=== PATIENT | male | born 1990 | race American Indian/Alaskan Native ===

== ENCOUNTER 2018-09-23 10:56 | Emergency (ER) | payer OTHER ==
[2018-09-23] MEDS ORDERED: IBUPROFEN PO ONE (12:16)
--- NOTE | 2018-09-23 12:47 | XRay Report ---
LEFT KNEE RADIOGRAPHS INDICATION: Pain. COMPARISON: None similar at this institution. FINDINGS: AP, lateral and oblique left knee radiographs demonstrate intact bony articulation and appearance. No suprapatellar effusion. Subtle prepatellar soft tissue swelling/thickening though not entirely excluded. CONCLUSION: No acute left knee bony abnormality, as described. Please correlate. Thank you for the opportunity to participate in this patient's care.
[2018-09-23 12:59] LABS: Basophils # (Auto) 0.1 K/mm3 (0.0-0.1); Basophils % (Auto) 1.2 % (0.0-1.8); Eosinophils # (Auto) 0.1 K/mm3 (0.0-0.4); Eosinophils % (Auto) 1.2 % (0.0-4.3); Hematocrit 43.6 % (35.5-45.6); Hemoglobin 14.5 gm/dl (11.8-15.2); Lymphocytes # (Auto) 2.3 K/mm3 (1.2-5.4); Lymphocytes % (Auto) 31.7 % (13.4-35.0); Mean Corpuscular HGB Conc 33 % (32-34); Mean Corpuscular Volume 82 fl (84-94); Monocytes # (Auto) 0.5 K/mm3 (0.0-0.8); Monocytes % (Auto) 7.3 % (0.0-7.3); Platelet Count 193 K/mm3 (140-440); Red Blood Count 5.33 M/mm3 (3.65-5.03); Red Cell Distribution Width 14.3 % (13.2-15.2)
--- NOTE | 2018-09-23 13:40 | Emergency Department Report ---
HPI - General Chief Complaint: Extremity Injury, Lower Time Seen by Provider: 09/23/18 12:06 - HPI HPI: 28-year-old male who presents to the emergency department with complaint of left knee pain and swelling since he had it on something about 2 days ago. The pain is a throbbing sensation and has kept him from getting any sleep. He says he also has a history of gout and doesn't know if this exacerbated it. He did not take anything for her symptoms prior to presentation. ED Past Medical Hx - Past Medical History Previous Medical History?: No - Surgical History Past Surgical History?: No - Social History Smoking Status: Never Smoker Substance Use Type: None - Medications Home Medications: Home Medications Medication Instructions Recorded Confirmed Last Taken Type Erythromycin [Erythromycin Ophth 1 applic OP QID 10 Days #1 tube 05/24/18 Unknown Rx Oint] HYDROcodone/ACETAMINOPHEN [[place] 1 each PO Q6H PRN #10 tablet 05/24/18 Unknown Rx 7.5-325 Tablet] Ibuprofen [Motrin 600 MG tab] 600 mg PO Q8H PRN #30 tablet 05/24/18 Unknown Rx Colchicine 0.6 mg PO ONCE #3 capsule 09/23/18 Unknown Rx HYDROcodone/APAP 5-325 [[place] 1 each PO Q6HR PRN #10 tablet 09/23/18 Unknown Rx 5/325] ED Review of Systems ROS: Stated complaint: L KNEE PAIN Other details as noted in HPI Comment: All other systems reviewed and negative Constitutional: denies: chills, fever Eyes: denies: eye pain, vision change ENT: denies: ear pain, throat pain Respiratory: denies: cough, shortness of breath Cardiovascular: denies: chest pain, palpitations Gastrointestinal: denies: abdominal pain, vomiting Genitourinary: denies: dysuria, discharge Musculoskeletal: joint swelling, arthralgia Skin: denies: rash, lesions Neurological: denies: headache, weakness Physical Exam - Physical Exam Vital Signs: Vital Signs 09/23/18 11:05 Temperature 98.5 F Pulse Rate 67 Respiratory 16 Rate Blood Pressure 125/65 O2 Sat by Pulse 99 Oximetry Physical Exam: GENERAL: The patient is well-developed well-nourished. HENT: Normocephalic. Atraumatic. Patient has moist mucous membranes. EYES: Extraocular motions are intact. NECK: Supple. Trachea is midline. CHEST/LUNGS: Clear to auscultation. There is no respiratory distress noted. HEART/CARDIOVASCULAR: Regular. There is no tachycardia. There is no murmur. ABDOMEN: Abdomen is soft, nontender. Patient has normal bowel sounds. There is no abdominal distention. SKIN: Mild nonpitting swelling of the left anterior knee. NEURO: The patient is awake, alert, and oriented. The patient is cooperative. The patient has no focal neurologic deficits. The patient has normal speech. MUSCULOSKELETAL: There is some tenderness to palpation of the left knee but no obvious deformity. Negative anterior and posterior drawer test of the affected left knee. No laxity to valgus or varus stress. ED Course Vital Signs 09/23/18 11:05 Temperature 98.5 F Pulse Rate 67 Respiratory 16 Rate Blood Pressure 125/65 O2 Sat by Pulse 99 Oximetry ED Medical Decision Making - Lab Data Result diagrams: 09/23/18 12:33 - Radiology Data Radiology results: image reviewed interpreted by me: X-ray of the left knee does not show any fracture, dislocation or any acute process. - Medical Decision Making 28-year-old male presents to the emergency department with a 3 to four-day history of left knee pain after hitting it on something. He says that he has a history of gout so a uric acid level was checked again back at 8.5, slightly elevated. X-ray did not show any fracture or dislocation. The patient was placed in a knee immobilizer. He was given a referral for an orthopedist and a prescription for some pain medication and a dose of colchicine. He will return to the ER with any worsening of symptoms or any acute distress. - Differential Diagnosis fracture, dislocation, gout, osteoarthritis Critical Care Time: No Critical care attestation.: If time is entered above; I have spent that time in minutes in the direct care of this critically ill patient, excluding procedure time. ED Disposition Clinical Impression: Left knee pain Qualifiers: Chronicity: acute Qualified Code(s): M25.562 - Pain in left knee Gout Qualifiers: Gout site: knee Gout etiology: unspecified cause Chronicity: unspecified Laterality: left Qualified Code(s): M10.9 - Gout, unspecified Disposition: DC- TO HOME OR SELFCARE Is pt being admited?: No Condition: Stable Instructions: Acute Gouty Arthritis (ED), Arthralgia (ED) Additional Instructions: Please follow up with your primary care physician. I'm continuing referral for a local orthopedist, Dr. Da Silva, to follow up regarding your knee pain. Return to the emergency Department with any worsening of your symptoms or any acute distress. You have been prescribed a medication that is sedating and therefore should not be taken prior to driving, working, and responsible for children and in no way should be mixed with alcohol of any quantity. Prescriptions: Colchicine 0.6 mg PO ONCE #3 capsule HYDROcodone/APAP 5-325 [[place] 5/325] 1 each PO Q6HR PRN #10 tablet PRN Reason: Pain Referrals: [facility] [Outside] - 2-3 Days VINCENT DA SILVA MD [Staff Physician] - 2-3 Days Forms: Work/School Release Form(ED) Time of Disposition: 13:40
[2018-09-23 14:46] VITALS: BP 118/72
== END 2018-09-23 14:45 | disposition home or self-care (01) ==
LOC: ED 10:56
DX: M10.9 Gout, unspecified (principal); M25.562 Pain in left knee
CPT/HCPCS: 36415; 84550; 85025

== ENCOUNTER 2019-07-17 15:50 | Emergency (ER) | payer SELFPAY ==
[2019-07-17 16:18] VITALS: BP 122/65
--- NOTE | 2019-07-17 16:22 | Emergency Department Report ---
ED Extremity Problem HPI - General Chief complaint: Extremity Problem,Nontraumatic Stated complaint: GOUT FLARE UP Time Seen by Provider: 07/17/19 16:17 Source: patient Mode of arrival: Ambulatory Limitations: No Limitations - History of Present Illness Initial comments: pt is a 29 yo male who presents to the ED with c/o a gout flare that began three days ago. states that he has right knee pain and edema. states he last had a gout flare three weeks ago. he is ambulatory. he denies any fall or injury. no numbness or weakness. no pmhx. no allergies to meds. - Related Data Previous Rx's Medication Instructions Recorded Last Taken Type Erythromycin [Erythromycin Ophth 1 applic OP QID 10 Days #1 tube 05/24/18 Unknown Rx Oint] HYDROcodone/ACETAMINOPHEN [[place] 1 each PO Q6H PRN #10 tablet 05/24/18 Unknown Rx 7.5-325 Tablet] Ibuprofen [Motrin 600 MG tab] 600 mg PO Q8H PRN #30 tablet 05/24/18 Unknown Rx HYDROcodone/APAP 5-325 [[place] 1 each PO Q6HR PRN #10 tablet 09/23/18 Unknown Rx 5/325] Colchicine 0.6 mg PO ONCE #3 capsule 07/17/19 Unknown Rx Prednisone [predniSONE 10 mg 10 mg PO .TAPER #1 tab.ds.pk 07/17/19 Unknown Rx (6-Day Pack, 21 Tabs)] traMADoL [Ultram 50 MG tab] 50 mg PO Q6HR PRN #10 tablet 07/17/19 Unknown Rx Allergies Allergy/AdvReac Type Severity Reaction Status Date / Time No Known Allergies Allergy Unverified 05/24/18 02:02 ED Review of Systems ROS: Stated complaint: GOUT FLARE UP Other details as noted in HPI Comment: All other systems reviewed and negative ED Past Medical Hx - Past Medical History Previous Medical History?: Yes Additional medical history: Gout - Social History Smoking Status: Never Smoker Substance Use Type: None - Medications Home Medications: Home Medications Medication Instructions Recorded Confirmed Last Taken Type Erythromycin [Erythromycin Ophth 1 applic OP QID 10 Days #1 tube 05/24/18 Unknown Rx Oint] HYDROcodone/ACETAMINOPHEN [[place] 1 each PO Q6H PRN #10 tablet 05/24/18 Unknown Rx 7.5-325 Tablet] Ibuprofen [Motrin 600 MG tab] 600 mg PO Q8H PRN #30 tablet 05/24/18 Unknown Rx HYDROcodone/APAP 5-325 [[place] 1 each PO Q6HR PRN #10 tablet 09/23/18 Unknown Rx 5/325] Colchicine 0.6 mg PO ONCE #3 capsule 07/17/19 Unknown Rx Prednisone [predniSONE 10 mg 10 mg PO .TAPER #1 tab.ds.pk 07/17/19 Unknown Rx (6-Day Pack, 21 Tabs)] traMADoL [Ultram 50 MG tab] 50 mg PO Q6HR PRN #10 tablet 07/17/19 Unknown Rx ED Physical Exam - General Limitations: No Limitations General appearance: alert, in no apparent distress - Head Head exam: Present: atraumatic, normocephalic - Eye Eye exam: Present: normal appearance - ENT ENT exam: Present: mucous membranes moist - Extremities Exam Extremities exam: Present: other (edema and increased warmth to the left knee, no erythema, slightly decreased ROM secondary to discomfort, neurovascularly intact) - Neurological Exam Neurological exam: Present: alert, oriented X3 - Psychiatric Psychiatric exam: Present: normal affect, normal mood - Skin Skin exam: Present: warm, dry, intact ED Course Vital Signs 07/17/19 16:03 Temperature 99.0 F Pulse Rate 98 H Respiratory 10 L Rate Blood Pressure 122/65 O2 Sat by Pulse 98 Oximetry ED Medical Decision Making - Medical Decision Making pt is a 29 yo male who presents to the ED with c/o a gout flare that began three days ago. states that he has right knee pain and edema. states he last had a gout flare three weeks ago. he is ambulatory. he denies any fall or injury. no numbness or weakness. no pmhx. no allergies to meds. on exam: edema and increased warmth to the left knee, no erythema, slightly decreased ROM secondary to discomfort, neurovascularly intact. Examination consistent with acute gout flare. Patient given prescription for prednisone, colchicine, tramadol. advised pt to please take medication as prescribed. do not drive or operate heavy machinery while taking pain medication. follow up with a primary care doctor. return to the emergency room for any new or worsening symptoms. Critical care attestation.: If time is entered above; I have spent that time in minutes in the direct care of this critically ill patient, excluding procedure time. ED Disposition Clinical Impression: Gout of right knee Qualifiers: Gout etiology: unspecified cause Chronicity: acute Qualified Code(s): M10.9 - Gout, unspecified Disposition: TO HOME OR SELFCARE Is pt being admited?: No Does the pt Need Aspirin: No Condition: Stable Instructions: Acute Gouty Arthritis (ED) Additional Instructions: please take medication as prescribed. do not drive or operate heavy machinery while taking pain medication. follow up with a primary care doctor. return to the emergency room for any new or worsening symptoms. Prescriptions: Colchicine 0.6 mg PO ONCE #3 capsule Prednisone [predniSONE 10 mg (6-Day Pack, 21 Tabs)] 10 mg PO .TAPER #1 tab.ds.pk traMADoL [Ultram 50 MG tab] 50 mg PO Q6HR PRN #10 tablet PRN Reason: Pain , Severe (7-10) Referrals: DOREEN BROCK MD [Staff Physician] - 2-3 Days [facility] [Outside] - 2-3 Days [facility] [Outside] - 2-3 Days Time of Disposition: 16:21 Print Language: PERSIAN
== END 2019-07-17 16:49 | disposition home or self-care (01) ==
LOC: ED 15:50
DX: M10.9 Gout, unspecified (principal); M25.561 Pain in right knee; Z79.899 Other long term (current) drug therapy
CPT/HCPCS: 99282

== ENCOUNTER 2021-03-28 00:16 | Emergency (ER) | payer SELFPAY ==
[2021-03-28] MEDS ORDERED: SODIUM CHLORIDE 0.9% 1000 ML 1,000 ML IV ONE (01:02)
[2021-03-28] MEDS ORDERED: ONDANSETRON 4 MG/2 ML INJ IV ONE (01:04)
[2021-03-28] MEDS ORDERED: FAMOTIDINE 20 MG/2 ML INJ IV ONE (01:04)
[2021-03-28 01:38] LABS: Basophils % (Auto) 0.5 % (0.0-1.8); Hematocrit 43.3 % (35.5-45.6); Hemoglobin 14.1 gm/dl (11.8-15.2); Lymphocytes # (Auto) 1.4 K/mm3 (1.2-5.4); Lymphocytes % (Auto) 34.9 % (13.4-35.0); Mean Corpuscular HGB Conc 33 % (32-34); Mean Corpuscular Volume 82 fl (84-94); Monocytes # (Auto) 0.3 K/mm3 (0.0-0.8); Monocytes % (Auto) 6.5 % (0.0-7.3); Platelet Count 150 K/mm3 (140-440); Red Blood Count 5.27 M/mm3 (3.65-5.03); Red Cell Distribution Width 14.8 % (13.2-15.2)
--- NOTE | 2021-03-28 01:48 | XRay Report ---
CHEST PA AND LATERAL VIEWS INDICATION: Chest Pain. COMPARISON: None. FINDINGS: Support devices: None. Heart: Within normal limits. Lungs/Pleura: There is patchy bilateral airspace disease greatest in the inferior right upper lobe an d perihilar left mid to lower lung. No pleural abnormality. IMPRESSION: 1. Patchy bilateral airspace opacities are concerning for bilateral pneumonia. Signer Name: Justin Gomez MD Signed: 03/28/2021 1:44 AM Workstation Name: [id number]
[2021-03-28 02:22] LABS: Alanine Aminotransferase 76 units/L (7-56); Albumin 3.6 g/dL (3.9-5); BUN/Creatinine Ratio 8; Blood Urea Nitrogen 9 mg/dL (9-20); Calcium 8.5 mg/dL (8.4-10.2); Hemolysis Index 5
[2021-03-28] MEDS ORDERED: dexAMETHasone 20 MG/5 ML VIAL IV ONE (03:14)
[2021-03-28] MEDS ORDERED: cefTRIAXone/NS 1 GM/50 ML 1 GM/50 ML BAG IV ONE (03:14)
[2021-03-28] MEDS ORDERED: AZITHROMYCIN 250 MG TAB PO ONE (03:14)
[2021-03-28] MEDS ORDERED: IPRATROPIUM/ALBUTEROL SULFATE 3 ML AMPUL.NEB IH ONE (03:46)
--- NOTE | 2021-03-28 03:49 | Emergency Department Report ---
- General Chief Complaint: Chest Pain Stated Complaint: CHEST PAIN Source: patient Mode of arrival: Ambulatory Limitations: No Limitations - History of Present Illness Initial Comments: Patient is a 30-year-old -[place]aur[place] male with no past medical history presents to the ED with complaint of acute onset persistent nasal and sinus congestion, persistent dry cough, wheezing, diffuse body aches and pains, nausea and vomiting and lack of appetite with generalized weakness for the last 3 days. Patient states that he tested positive for COVID-19 viral infection 3 days ago. Patient states that prior to arrival in the ED, his body aches were worse including nausea and vomiting. Patient denies dizziness, syncope, sore throat, chest pain, back pain, dysuria, urinary frequency and urgency, change in vision, seizures or hematemesis or hematochezia, and hemoptysis. MD Complaint: cough, rhinorrhea, nasal congestion, sinus pain, other (Diffuse body aches and pains, fever and chills, pleuritic chest pain, cough) -: Sudden, days(s) (3) Severity: severe Severity scale (0 -10): 7 Quality: aching Consistency: constant Improves With: nothing Worsens With: nothing Context: sick contacts Associated Symptoms: denies other symptoms, fever, chills, myalgias, headache, rhinorrhea, nasal congestion, cough. denies: chest pain, shortness of breath, abdominal pain, nausea, vomiting, diarrhea, dysuria, rash, confusion, right sweats, weight loss, epistaxis, hoarseness, ear pain, other Treatments Prior to Arrival: "cold medicine" - Related Data Previous Rx's Medication Instructions Recorded Last Taken Type Erythromycin [Erythromycin Ophth 1 applic OP QID 10 Days #1 tube 05/24/18 Unknown Rx Oint] HYDROcodone/ACETAMINOPHEN [[place] 1 each PO Q6H PRN #10 tablet 05/24/18 Unknown Rx 7.5-325 Tablet] Ibuprofen [Motrin 600 MG tab] 600 mg PO Q8H PRN #30 tablet 05/24/18 Unknown Rx HYDROcodone/APAP 5-325 [[place] 1 each PO Q6HR PRN #10 tablet 09/23/18 Unknown Rx 5/325] Colchicine 0.6 mg PO ONCE #3 capsule 07/17/19 Unknown Rx Prednisone [predniSONE 10 mg 10 mg PO .TAPER #1 tab.ds.pk 07/17/19 Unknown Rx (6-Day Pack, 21 Tabs)] traMADoL [Ultram 50 MG tab] 50 mg PO Q6HR PRN #10 tablet 07/17/19 Unknown Rx Acetaminophen [Tylenol] 500 mg PO Q6HR PRN #30 tablet 03/28/21 Unknown Rx Albuterol Sulfate [Proventil Hfa] 1 - 2 puff IH Q6H PRN #1 hfa.aer.ad 03/28/21 Unknown Rx Ascorbic Acid [Vitamin C] 1,000 mg PO Q12H #30 tab 03/28/21 Unknown Rx Cetirizine HCl [Zyrtec 10mg tab] 10 mg PO DAILY #30 tablet 03/28/21 Unknown Rx Doxycycline Hyclate 100 mg PO Q12H #20 capsule 03/28/21 Unknown Rx Ondansetron [Zofran Odt] 4 mg PO Q6HR PRN #20 tab.rapdis 03/28/21 Unknown Rx Zinc Acetate [Galzin 50mg CAP] 50 mg PO DAILY #30 capsule 03/28/21 Unknown Rx Allergies Allergy/AdvReac Type Severity Reaction Status Date / Time No Known Allergies Allergy Unverified 05/24/18 02:02 ED Review of Systems ROS: Stated complaint: CHEST PAIN Other details as noted in HPI Constitutional: chills, fever, malaise Eyes: denies: eye pain, eye discharge, vision change ENT: congestion. denies: ear pain, throat pain Respiratory: cough. denies: shortness of breath, wheezing Cardiovascular: denies: chest pain, palpitations Endocrine: no symptoms reported Gastrointestinal: denies: abdominal pain, nausea, vomiting, diarrhea Genitourinary: denies: urgency, dysuria Musculoskeletal: arthralgia, myalgia. denies: back pain, joint swelling Skin: denies: rash, lesions Neurological: headache. denies: weakness, paresthesias Psychiatric: denies: anxiety, depression Hematological/Lymphatic: denies: easy bleeding, easy bruising ED Past Medical Hx - Past Medical History Previous Medical History?: No Additional medical history: Gout - Surgical History Past Surgical History?: No - Social History Smoking Status: Never Smoker Substance Use Type: None - Medications Home Medications: Home Medications Medication Instructions Recorded Confirmed Last Taken Type Erythromycin [Erythromycin Ophth 1 applic OP QID 10 Days #1 tube 05/24/18 Unknown Rx Oint] HYDROcodone/ACETAMINOPHEN [[place] 1 each PO Q6H PRN #10 tablet 05/24/18 Unknown Rx 7.5-325 Tablet] Ibuprofen [Motrin 600 MG tab] 600 mg PO Q8H PRN #30 tablet 05/24/18 Unknown Rx HYDROcodone/APAP 5-325 [[place] 1 each PO Q6HR PRN #10 tablet 09/23/18 Unknown Rx 5/325] Colchicine 0.6 mg PO ONCE #3 capsule 07/17/19 Unknown Rx Prednisone [predniSONE 10 mg 10 mg PO .TAPER #1 tab.ds.pk 07/17/19 Unknown Rx (6-Day Pack, 21 Tabs)] traMADoL [Ultram 50 MG tab] 50 mg PO Q6HR PRN #10 tablet 07/17/19 Unknown Rx Acetaminophen [Tylenol] 500 mg PO Q6HR PRN #30 tablet 03/28/21 Unknown Rx Albuterol Sulfate [Proventil Hfa] 1 - 2 puff IH Q6H PRN #1 hfa.aer.ad 03/28/21 Unknown Rx Ascorbic Acid [Vitamin C] 1,000 mg PO Q12H #30 tab 03/28/21 Unknown Rx Cetirizine HCl [Zyrtec 10mg tab] 10 mg PO DAILY #30 tablet 03/28/21 Unknown Rx Doxycycline Hyclate 100 mg PO Q12H #20 capsule 03/28/21 Unknown Rx Ondansetron [Zofran Odt] 4 mg PO Q6HR PRN #20 tab.rapdis 03/28/21 Unknown Rx Zinc Acetate [Galzin 50mg CAP] 50 mg PO DAILY #30 capsule 03/28/21 Unknown Rx ED Physical Exam - General Limitations: No Limitations General appearance: alert, in no apparent distress - Head Head exam: Present: atraumatic, normocephalic, normal inspection - Eye Eye exam: Present: normal appearance, PERRL, EOMI. Absent: scleral icterus, conjunctival injection, nystagmus, periorbital swelling, periorbital tenderness Pupils: Present: normal accommodation - ENT ENT exam: Present: normal orophraynx, mucous membranes moist, normal external ear exam, other (Grossly congested nasal passages) - Neck Neck exam: Present: normal inspection, full ROM - Respiratory Respiratory exam: Present: wheezes (Mildly diffuse coarse wheezes throughout). Absent: respiratory distress, rales, rhonchi, chest wall tenderness, accessory muscle use, decreased breath sounds - Cardiovascular Cardiovascular Exam: Present: normal rhythm, tachycardia, normal heart sounds. Absent: systolic murmur, diastolic murmur, rubs, gallop - GI/Abdominal GI/Abdominal exam: Present: soft, normal bowel sounds. Absent: tenderness, guarding, rebound, hyperactive bowel sounds - Extremities Exam Extremities exam: Present: normal inspection, full ROM, normal capillary refill - Back Exam Back exam: Present: normal inspection, full ROM. Absent: tenderness, CVA tenderness (R), CVA tenderness (L), muscle spasm, paraspinal tenderness, vertebral tenderness - Neurological Exam Neurological exam: Present: alert, oriented X3, CN II-XII intact, normal gait, reflexes normal - Psychiatric Psychiatric exam: Present: normal affect, normal mood - Skin Skin exam: Present: warm, dry, intact, normal color. Absent: rash ED Course Vital Signs 03/28/21 00:21 Temperature 100.6 F H Pulse Rate 101 H Respiratory 16 Rate Blood Pressure 125/99 [Left] O2 Sat by Pulse 98 Oximetry ED Medical Decision Making - Lab Data Result diagrams: 03/28/21 01:23 03/28/21 01:22 - Radiology Data Radiology results: report reviewed, [place] [address] XRay Report Signed Patient: HEMANTH PAZ MR#: [id number] : 1990 Acct:[id number] Age/Sex: 30 / M A DM Date: 03/28/21 Loc: ED Attending Dr: Ordering Physician: ANETA JUAN Date of Service: 03/28/21 Procedure(s): XR chest routine 2V Accession Number(s): [id number] cc: ANETA JUAN Fluoro Time In Minutes: CHEST PA AND LATERAL VIEWS INDICATION: Chest Pain. COMPARISON: None. FINDINGS: Support devices: None. Heart: Within normal limits. Lungs/Pleura: There is patchy bilateral airspace disease greatest in the infer ior right upper lobe and perihilar left mid to lower lung. No pleural abnormality. IMPRESSION: 1. Patchy bilateral airspace opacities are concerning for bilateral pneumonia. Signer Name: Justin Gomez MD Signed: 03/28/2021 1:44 AM Workstation Name: [id number] Transcribed By: SW Dictated By: Justin Gomez MD Electronically Authenticated By: Jusitn Gomez MD Signed Date/Time: 03/28/21143 DD/ 2 TD/TT: Print - Medical Decision Making This is a 30-year-old -[place]aur[place] male with no past medical history present s to the ED with complaint of acute onset persistent nasal and sinus congestion, persistent dry cough, wheezing, diffuse body aches and pains, nausea and vomiting and lack of appetite with generalized weakness for the last 3 days. Patient states that he tested positive for COVID-19 viral infection 3 days ago. Patient states that prior to arrival in the ED, his body aches were worse including nausea and vomiting. In the ED, patient is alert and oriented x3 and is not in any distress. Patient was treated in the ED for fever with Tylenol and ibuprofen. Patient also received normal saline 1 L IV bolus x1. Chest x- ray showed patchy bilateral airspace opacities are concerning for bilateral pneumonia. Patient also received DuoNeb treatment and Decadron 10 mg IV x1, Rocephin 1 g IV x1 and azithromycin 500 mg p.o. x1. Lab test results were reviewed and showed AST of 52 and ALT of 76 but the rest of the lab test results were nonactionable. Given the fact that the patient tested positive for COVID- 19 viral infection, and is not hypoxic but the oxygen saturation is 90% in room air, patient was discharged home on medications and advised to self quarantine at home for 10 days while taking medications. Patient is advised return to the ED immediately if symptoms get worse. - Differential Diagnosis Pneumonia; COVID-19; sinusitis; ACS; dehydration; bronchitis Critical care attestation.: If time is entered above; I have spent that time in minutes in the direct care of this critically ill patient, excluding procedure time. ED Disposition Clinical Impression: Acute upper respiratory infection, Suspected 2019 novel coronavirus infection, Pneumonia due to 2019 novel coronavirus Community acquired pneumonia Qualifiers: Laterality: unspecified laterality Qualified Code(s): J18.9 - Pneumonia, unspecified organism Disposition: HOME / SELF CARE / HOMELESS Is pt being admited?: No Does the pt Need Aspirin: No Condition: Stable Instructions: Bacterial Pneumonia (ED), Upper Respiratory Infection, Adult, [id number], Community-Acquired Pneumonia, Adult, [id number], Cough, Adult, [id number], COVID-19: How to Protect Yourself and Others - [facility] Additional Instructions: All lab test results were reviewed and are all nonactionable. Chest x-ray showed patchy bilateral airspace disease greatest in the inferior right upper lobe and perihilar left mid to lower lung. Given the fact that you have tested positive for COVID-19 viral infection, it is important that you self quarantine for 10 days while taking the medications. Therefore take medications with food drink plenty of fluids and follow-up with your primary care physician after your quarantine is over. Return to the ED immediately if symptoms get worse. Prescriptions: Acetaminophen [Tylenol] 500 mg PO Q6HR PRN #30 tablet PRN Reason: pain or fever Doxycycline Hyclate 100 mg PO Q12H #20 capsule Zinc Acetate [Galzin 50mg CAP] 50 mg PO DAILY #30 capsule Albuterol Sulfate [Proventil Hfa] 1 - 2 puff IH Q6H PRN #1 hfa.aer.ad PRN Reason: Shortness Of Breath Ascorbic Acid [Vitamin C] 1,000 mg PO Q12H #30 tab Ondansetron [Zofran Odt] 4 mg PO Q6HR PRN #20 tab.rapdis PRN Reason: Nausea Cetirizine HCl [Zyrtec 10mg tab] 10 mg PO DAILY #30 tablet Referrals: [facility] [Provider Group] - 7-10 days Forms: Work/School Release Form(ED) Time of Disposition: 03:55 Print Language: YAKUT
[2021-03-28 05:17] VITALS: BP 109/62
--- NOTE | 2021-03-28 08:42 | Electrocardiograph Report ---
[facility] Test Date: 2021-03-28 Test Time: 00:27:46 Pat Name: HEMANTH PAZ Department: Room: Gender: M Insights Manager: RAFIA : 1990 Requested By: ANETA JUAN Order Number: [id number] Reading MD: James Daniel Measurements Intervals [place] Rate: 93 P: 15 DE: 162 QRS: -14 QRSD: 89 T: -31 QT: 324 QTc: 402 Interpretive Statements Sinus rhythm Nonspecific repol abnormality, diffuse leads ST elevation, consider lateral injury No previous ECG available for comparison Electronically Signed On 03-28-2021 8:41:51 EDT by James Daniel
== END 2021-03-28 05:20 | disposition home or self-care (01) ==
LOC: ED 00:16
DX: J18.9 Pneumonia, unspecified organism (principal)
CPT/HCPCS: 36415; 71046; 80053; 83690; 84484; 85025; 93005; 96361; 96374; 96375; 99284; J0696; J1100; J2405; J7030